=== PATIENT | female | born 1940 | race Asian ===

== ENCOUNTER 2018-09-16 11:50 | Outpatient (CLI) | payer MEDICARE ==
[2018-09-16 19:33] LABS: BASOPHILS % (AUTO) 0.5 %; EOSINOPHILS % (AUTO) 0.2 %; HGB - HEMOGLOBIN 15.1 g/dL (12.0-16.0); LYMPHOCYTES # (AUTO) 1.5 10^3/uL (1.5-3.5); LYMPHOCYTES % (AUTO) 26.8 %; MEAN CORPUSCULAR HEMOGLOBIN 30.7 pg (27.0-31.0); MEAN PLATELET VOLUME 7.1 fL (7.9-10.8); MONOCYTES # (AUTO) 0.3 10^3/uL (0.0-1.0); MONOCYTES % (AUTO) 5.2 %; NEUTROPHILS # (AUTO) 3.7 10^3/uL (1.5-6.6); NEUTROPHILS % (AUTO) 67.3 %; PLT - PLATELET COUNT 230 10^3/uL (130-450); RED BLOOD COUNT 4.92 10^6/uL (4.20-5.40); RED CELL DISTRIBUTION WIDTH 12.9 % (12.0-15.0); WHITE BLOOD COUNT 5.6 x10^3/uL (4.8-10.8)
[2018-09-16 19:46] LABS: ALBUMIN 4.6 g/dL (3.2-5.5); ALBUMIN/GLOBULIN RATIO 1.4 (1.0-2.2); ALKALINE PHOSPHATASE 61 IU/L (42-121); ALT ALANINE AMINOTRANSFERASE 16 IU/L (10-60); AST ASPARTATE AMINOTRANSFERASE 20 IU/L (10-42); BILIRUBIN,TOTAL 1.1 mg/dL (0.2-1.0); BUN - BLOOD UREA NITROGEN 19 mg/dL (6-20); CARBON DIOXIDE - CO2 26 mmol/L (21-32); CHLORIDE 102 mmol/L (101-111); CHOL/HDL RATIO 2.4 (<4.4); CHOLESTEROL 185 mg/dL; CREATININE 0.8 mg/dL (0.4-1.0); GFR - MDRD 70 (>89); GLUCOSE 123 mg/dL (70-100); HDL CHOLESTEROL 76 mg/dL; LDL CHOLESTEROL,CALCULATED 95 mg/dL; LDL/HDL RATIO 1.3 (<4.4); SODIUM 136 mmol/L (135-145); TOTAL PROTEIN 7.9 g/dL (6.7-8.2); VLDL CHOLESTEROL 14 mg/dL
== END 2018-09-16 23:59 ==
LOC: LAB.WCP 11:50
PROVIDERS: ATTEND Nurse Practitioner
DX: I10 Essential (primary) hypertension (principal)
CPT/HCPCS: 36415; 80053; 80061; 83721; 84443; 85025

== ENCOUNTER 2019-05-26 10:16 | Outpatient (CLI) | payer MEDICARE ==
[2019-05-26 10:50] LABS: HB2 TOTAL 14.5 g/dL; HEMOGLOBIN A1C 0.78 g/dL; HEMOGLOBIN A1C % 7.1 % (4.6-6.2)
[2019-05-26 11:10] LABS: CALCIUM 9.5 mg/dL (8.5-10.3); CREATININE 0.8 mg/dL (0.4-1.0)
== END 2019-05-26 10:17 | disposition home or self-care (01) ==
LOC: LAB 10:16
PROVIDERS: ATTEND Nurse Practitioner
DX: R73.01 Impaired fasting glucose (principal); I10 Essential (primary) hypertension
CPT/HCPCS: 36415; 80048; 83036

== ENCOUNTER 2019-10-03 08:53 | Outpatient (CLI) | payer MEDICARE ==
[2019-10-03 09:10] LABS: BASOPHILS % (AUTO) 0.5 %; HGB - HEMOGLOBIN 14.1 g/dL (12.0-16.0); LYMPHOCYTES # (AUTO) 1.1 10^3/uL (1.5-3.5); LYMPHOCYTES % (AUTO) 27.8 %; MEAN CORPUSCULAR HEMOGLOBIN 30.7 pg (27.0-31.0); MEAN CORPUSCULAR HGB CONC 32.2 g/dL (32.0-36.0); MEAN CORPUSCULAR VOLUME 95.4 fL (81.0-99.0); MEAN PLATELET VOLUME 8.8 fL (7.9-10.8); MONOCYTES # (AUTO) 0.3 10^3/uL (0.0-1.0); MONOCYTES % (AUTO) 7.8 %; NEUTROPHILS # (AUTO) 2.5 10^3/uL (1.5-6.6); NEUTROPHILS % (AUTO) 62.6 %; PLT - PLATELET COUNT 169 10^3/uL (130-450); RED BLOOD COUNT 4.59 10^6/uL (4.20-5.40)
[2019-10-03 09:35] LABS: ALBUMIN 4.8 g/dL (3.2-5.5); ALBUMIN/GLOBULIN RATIO 1.5 (1.0-2.2); ALKALINE PHOSPHATASE 61 IU/L (42-121); ALT ALANINE AMINOTRANSFERASE 23 IU/L (10-60); AST ASPARTATE AMINOTRANSFERASE 25 IU/L (10-42); BUN - BLOOD UREA NITROGEN 48 mg/dL (6-20); CALCIUM 9.5 mg/dL (8.5-10.3); CARBON DIOXIDE - CO2 25 mmol/L (21-32); CHLORIDE 104 mmol/L (101-111); CHOL/HDL RATIO 2.7 (<4.4); CHOLESTEROL 187 mg/dL; CREATININE 1.2 mg/dL (0.4-1.0); GFR - MDRD 44 (>89); GLUCOSE 128 mg/dL (70-100); HDL CHOLESTEROL 70 mg/dL; LDL CHOLESTEROL,CALCULATED 99 mg/dL; LDL/HDL RATIO 1.4 (<4.4); SODIUM 140 mmol/L (135-145); TOTAL PROTEIN 7.9 g/dL (6.7-8.2); VLDL CHOLESTEROL 18 mg/dL
[2019-10-03 09:41] LABS: HB2 TOTAL 14.3 g/dL; HEMOGLOBIN A1C 0.73 g/dL; HEMOGLOBIN A1C % 6.8 % (4.6-6.2)
== END 2019-10-03 08:54 | disposition home or self-care (01) ==
LOC: LAB 08:53
PROVIDERS: ATTEND Nurse Practitioner
DX: Z00.00 Encounter for general adult medical examination without abnormal findings (principal); I10 Essential (primary) hypertension; Z13.220 Encounter for screening for lipoid disorders; E11.9 Type 2 diabetes mellitus without complications
CPT/HCPCS: 36415; 80053; 80061; 83036; 83721; 84443; 85025

== ENCOUNTER 2021-07-04 21:33 | Outpatient (CLI) | payer MEDICARE | END 2021-07-04 21:34 | disposition critical access hospital (66) | LOC: EMS 21:33 | DX: R11.0 Nausea (principal); M79.604 Pain in right leg | CPT/HCPCS: A0425; A0427 ==

== ENCOUNTER 2021-07-04 21:46 | Emergency (ER) | payer MEDICARE ==
[2021-07-04 22:25] LABS: BASOPHILS % (AUTO) 0.2 %; EOSINOPHILS % (AUTO) 0.1 %; HCT - HEMATOCRIT 37.1 % (37.0-47.0); HGB - HEMOGLOBIN 11.7 g/dL (12.0-16.0); LYMPHOCYTES # (AUTO) 0.6 10^3/uL (1.5-3.5); LYMPHOCYTES % (AUTO) 6.8 %; MEAN CORPUSCULAR HEMOGLOBIN 30.2 pg (27.0-31.0); MEAN CORPUSCULAR HGB CONC 31.5 g/dL (32.0-36.0); MEAN CORPUSCULAR VOLUME 95.6 fL (81.0-99.0); MEAN PLATELET VOLUME 8.6 fL (7.9-10.8); MONOCYTES # (AUTO) 0.6 10^3/uL (0.0-1.0); MONOCYTES % (AUTO) 7.4 %; NEUTROPHILS # (AUTO) 7.3 10^3/uL (1.5-6.6); NEUTROPHILS % (AUTO) 85.1 %; PLT - PLATELET COUNT 163 10^3/uL (130-450); RED BLOOD COUNT 3.88 10^6/uL (4.20-5.40); RED CELL DISTRIBUTION WIDTH 12.5 % (12.0-15.0); WHITE BLOOD COUNT 8.6 x10^3/uL (4.8-10.8)
--- NOTE | 2021-07-04 22:32 | XRAY Report ---
PROCEDURE: Hip w/Pelvis 2-3V RT INDICATIONS: GLF, pain with weight bearing TECHNIQUE: AP pelvis with lateral view(s) of the bilateral hip(s). COMPARISON: None. FINDINGS: Bones: No fractures or dislocations. Pelvic ring appears intact. No suspicious bony lesions. Mild right and moderate left hip joint space narrowing and periarticular osteophyte formation. Soft tissues: The visualized bowel gas pattern is normal. No suspicious soft tissue calcifications. Curvilinear device projects over the left pelvic soft tissues. IMPRESSION: Bilateral hip osteoarthritis. No acute fracture. No osseous lesion. If symptoms and/or c linical suspicion for pathology continue, further assessment with repeat plain films, or advanced pattie ging (e.g., CT, MRI, or bone scan) is recommended for further assessment. Reviewed by: Martin Lemos MD on 07/04/2021 10:31 PM PDT Approved by: Martin Lemos MD on 07/04/2021 10:31 PM PDT Station ID: [id number]
[2021-07-04 22:38] LABS: ALBUMIN/GLOBULIN RATIO 1.2 (1.0-2.2); BILIRUBIN,TOTAL 0.9 mg/dL (0.2-1.0); CALCIUM 9.2 mg/dL (8.5-10.3); CREATININE 1.1 mg/dL (0.4-1.0); TOTAL PROTEIN 7.3 g/dL (6.7-8.2)
--- NOTE | 2021-07-04 23:55 | CT Report ---
PROCEDURE: HEAD WO INDICATIONS: fall, headache, n/v TECHNIQUE: Noncontrast 4.5 mm thick angled axial sections acquired from the foramen magnum to the vertex. For r adiation dose reduction, the following was used: automated exposure control, adjustment of mA and/or kV according to patient size. COMPARISON: None. FINDINGS: Image quality: Excellent. CSF spaces: Basal cisterns are patent. No extra-axial fluid collections. Ventricles are normal in size and shape. Brain: No midline shift. No intracranial masses or hemorrhage. Etienne-white matter interface is norm al. Skull and face: Right frontotemporal soft tissue swelling. Calvarium and visualized facial bones are intact, without suspicious lesions. Sinuses: Visualized sinuses and mastoids are clear. IMPRESSION: No acute intracranial abnormality. Reviewed by: Martin Lemos MD on 07/04/2021 11:54 PM PDT Approved by: Martin Lemos MD on 07/04/2021 11:54 PM PDT Station ID: [id number]
--- NOTE | 2021-07-05 00:28 | ED Physician Documentation ---
PD HPI Fall - Stated complaint Stated Complaint: NAUSEA/ R LEG PX - Chief complaint Chief Complaint: Trauma Hd/Nk - History obtained from History obtained from: Patient - History of Present Illness Mechanism of injury: Tripped Fall distance: Standing position Where injury occurred: Home Timing - onset: How many days ago (2) Injury(ies) location: Head, Right (hip) Associated symptoms: Nausea / vomiting. No: LOC Symptoms improve with: Nothing Contributing factors: No: Anticoagulated, Intoxicated Recently seen: Not recently seen - Additional information Additional information: patient is limited historian; does not have her hearing aids in ears (and when she tries to insert them, she does not know how they go in nor how to turn them on). Patient had mechanical (trip and) fall 2 days ago at home, struck head on floor but no LOC. Since then, she has had intermittent dizziness, episodic nausea with vomiting, and right hip pain though able to bear some weight. Review of Systems Constitutional: denies: Fever Cardiac: reports: Reviewed and negative Respiratory: reports: Reviewed and negative GI: reports: Nausea, Vomiting. denies: Abdominal Pain Skin: reports: Reviewed and negative Musculoskeletal: reports: Joint pain (right hip). denies: Neck pain, Back pain Neurologic: reports: Head injury. denies: Generalized weakness, Focal weakness, Numbness, Altered mental status, Headache, LOC PD PAST MEDICAL HISTORY - Past Medical History Past Medical History: Yes Cardiovascular: Hypertension Endocrine/Autoimmune: Type 2 diabetes - Present Medications Home Medications: Ambulatory Orders Medication Instructions Recorded Confirmed Sulfamethox/Trimeth 800/160 1 each PO BID #14 tablet 07/05/21 [Bactrim Ds 800/160] - Allergies Allergies/Adverse Reactions: Allergies Allergy/AdvReac Type Severity Reaction Status Date / Time Unable to Assess Allergy Verified 07/04/21 21:54 - Social History Does the pt smoke?: No Smoking Status: Never smoker Does the pt drink ETOH?: No Does the pt have substance abuse?: No - Immunizations Immunizations are current?: Yes PD ED PE NORMAL - Vitals Vital signs reviewed: Yes - General General: No acute distress, Other (thin, frail appearing female in NAD. she is exceptionally POARCH and thus cannot ascertain level of orientation (Had hearing aids in earlier and thus ED RN was able to gather fair amount of useful information that is incoporated into this H+P)) - HEENT HEENT: PERRL, EOMI, Moist mucous membranes, Other (large (2-3 cm diameter) crusted, raised scab and granulation tissue over right forehead which is nontender but from which pus is expressed when pressure is applied to the area) - Neck Neck: Supple, no meningeal sign, No bony TTP - Cardiac Cardiac: RRR - Respiratory Respiratory: No respiratory distress, Clear bilaterally - Abdomen Abdomen: Soft, Non tender - Back Back: No spinal TTP - Extremities Extremities: No deformity, No tenderness to palpate, Normal ROM s pain (normal ROM right ankle, knee, and hip. No tenderness with pelvic compression/distr action), No edema - Neuro Neuro: No motor deficit, No sensory deficit Eye Opening: To Voice Motor: Obeys Commands Results - Vitals Vitals: Vital Signs - 24 hr 07/04/21 07/04/21 07/04/21 21:51 21:54 22:32 Temperature 36.2 C L 36.2 C L Heart Rate 81 81 81 Respiratory 16 16 21 Rate Blood Pressure 178/77 H 178/77 H 166/80 H O2 Saturation 97 97 98 07/05/21 07/05/21 07/05/21 00:00 01:06 03:00 Temperature 36.4 C L Heart Rate 83 81 72 Respiratory 16 15 16 Rate Blood Pressure 134/69 H 127/68 150/62 H O2 Saturation 97 97 99 07/05/21 03:31 Temperature 36.4 C L Heart Rate 72 Respiratory 16 Rate Blood Pressure 150/62 H O2 Saturation 99 Oxygen O2 Source Room air - Labs Labs: Microbiology 07/05/21 02:00 Wound Culture - Preliminary Face - Abscess Laboratory Tests 07/04/21 07/04/21 22:21 22:21 WBC 8.6 RBC 3.88 L Hgb 11.7 L Hct 37.1 MCV 95.6 MCH 30.2 MCHC 31.5 L RDW 12.5 Plt Count 163 MPV 8.6 Neut # (Auto) 7.3 H Lymph # (Auto) 0.6 L [place] # (Auto) 0.6 Eos # (Auto) 0.0 Baso # (Auto) 0.0 Absolute Nucleated RBC 0.00 Nucleated RBC % 0.0 Sodium 141 Potassium 4.0 Chloride 109 Carbon Dioxide 23 Anion Gap 9.0 BUN 33 H Creatinine 1.1 H Estimated GFR (MDRD) 48 L Glucose 201 H Calcium 9.2 Total Bilirubin 0.9 AST 19 ALT 19 Alkaline Phosphatase 68 Total Protein 7.3 Albumin 4.0 Globulin 3.3 Albumin/Globulin Ratio 1.2 Lipase 29 - Rads (name of study) CTH Radiology: Prelim report reviewed, See rad report pelvis with right hip xrays Radiology: Prelim report reviewed, See rad report PD MEDICAL DECISION MAKING - ED course Complexity details: reviewed results, re-evaluated patient, considered differential, d/w patient ED course: no concerning/emergent findings on CT head nor plain films right hip/pelvis . she has full ROM right hip. incidentally noted is what appears to be a scab with granulation tissue on right forehead (ED RN says she d/w who says this has been there for weeks or longer and patient has yet to see a doctor about this lesion). With mild pressure on this lesion, pus was expressed, collected, and sent for culture and she is given/prescribed bactrim for this infected lesion. Departure - Departure Disposition: 01 Home, Self Care Clinical Impression: Scalp abrasion, infected Qualifiers: Encounter type: initial encounter Qualified Code(s): S00.01XA - Abrasion of scalp, initial encounter Condition: Good Instructions: ED Infec Skin Cellulitis Prescriptions: Sulfamethox/Trimeth 800/160 [Bactrim Ds 800/160] 1 each PO BID #14 tablet Comments: The lesion on your forehead is infected (pus discharge) and so an antibiotic was given to you and a prescription for a course of antibiotic has been sent to [facility] Discharge Date/Time: 07/05/21 03:31
[2021-07-05] MEDS ORDERED: SULFAMETH/TRIMETH DS 800/160 MG TABLET PO STA (01:51)
[2021-07-05 03:31] VITALS: BP 150/62
== END 2021-07-05 03:31 | disposition home or self-care (01) ==
LOC: EDUNIT# → ED 21:46
DX: S00.81XA Abrasion of other part of head, initial encounter (principal); L08.9 Local infection of the skin and subcutaneous tissue, unspecified; M25.551 Pain in right hip; R42 Dizziness and giddiness; R11.2 Nausea with vomiting, unspecified
CPT/HCPCS: 36415; 70450; 73502; 80053; 83690; 85025; 87070; 87077; 87205; 93005; 99283; 99284; A9270; 87181

== ENCOUNTER 2021-07-29 17:24 | Outpatient (CLI) | payer MEDICARE | END 2021-07-29 17:25 | disposition home or self-care (01) | LOC: LAB.N 17:24 | PROVIDERS: ATTEND Nurse Practitioner | DX: R35.0 Frequency of micturition (principal) | CPT/HCPCS: 81001; 87086 ==

== ENCOUNTER 2021-07-29 17:27 | Outpatient (CLI) | payer MEDICARE ==
--- NOTE | 2021-07-30 11:18 | XRAY Report ---
PROCEDURE: Thoracic Spine 3 View INDICATIONS: ACUTE BACK PAIN TECHNIQUE: 3 views of the thoracic spine were acquired. COMPARISON: None. FINDINGS: Bones: No fractures or dislocations. Vertebral body heights are maintained. No suspicious bony lesi ons. 12 pairs of ribs are noted, and appear intact where visualized. Focal levoscoliotic curvature noted at T4-T5 with a Valdovinos angle approximately 16.8 degrees. Multilevel endplate degenerative changes . Soft tissues: No paravertebral stripe thickening. Atherosclerotic calcifications noted throughout t he aorta. IMPRESSION: Mild multilevel thoracic spondylosis without evidence of an acute abnormality. Levoscoliotic curvature centered at T4-T5. Reviewed by: Kevin Amin DO on 07/30/2021 10:17 AM KATERYNA Approved by: Kevin Amin DO on 07/30/2021 10:17 AM KATERYNA Station ID: [id number]
--- NOTE | 2021-07-30 11:23 | XRAY Report ---
PROCEDURE: Lumbar Spine Complete INDICATIONS: ACUTE LOW BACK PAIN TECHNIQUE: 5 views of the lumbar spine were acquired. COMPARISON: None. FINDINGS: The exam is slightly limited given technique and diffuse bowel gas overlying the spine. Bones: 5 [id number] vertebrae are present. Vertebral body heights are maintained. There is grad e 1 anterolisthesis of L4 on L5. There is at least mild intervertebral disc space loss at L4-L5 and L 5-S1. There is facet arthropathy. Mild endplate degenerative changes. No pars defects. No suspicious osseous lesions. Soft tissues: Overlying bowel gas pattern is normal. Diffuse vascular calcifications with questionab le dilation of the abdominal aorta anterior to L3 and L4. Surgical object noted in the pelvis. IMPRESSION: No acute osseous abnormality. Multilevel lumbar spondylosis with grade 1 anterolisthesis of L4 on L5 with at least mild disc height loss at L4-L5 and L5-S1. Diffuse vascular calcifications with questionable dilation of the infrarenal abdominal aorta. Conside r further evaluation with ultrasound. Reviewed by: Kevin Amin DO on 07/30/2021 10:22 AM KATERYNA Approved by: Kevin Amin DO on 07/30/2021 10:22 AM KATERYNA Station ID: [id number]
== END 2021-07-29 17:28 | disposition home or self-care (01) ==
LOC: DI.N 17:27
PROVIDERS: ATTEND Nurse Practitioner
DX: M47.814 Spondylosis without myelopathy or radiculopathy, thoracic region (principal); M47.816 Spondylosis without myelopathy or radiculopathy, lumbar region; M43.16 Spondylolisthesis, lumbar region; M51.36 Other intervertebral disc degeneration, lumbar region; M51.37 Other intervertebral disc degeneration, lumbosacral region

== ENCOUNTER 2021-07-29 19:35 | Outpatient (CLI) | payer MEDICARE | END 2021-07-29 19:36 | disposition critical access hospital (66) | LOC: EMS 19:35 | DX: Z04.89 Encounter for examination and observation for other specified reasons (principal) | CPT/HCPCS: A0425; A0429 ==

== ENCOUNTER 2021-07-29 20:42 | Emergency (ER) | payer MEDICARE ==
[2021-07-29 21:01] LABS: BILIRUBIN,URINE NEGATIVE (NEGATIVE); CLARITY,URINE CLEAR (CLEAR); GLUCOSE, URINE (UA) 100 mg/dL (NEGATIVE); KETONES,URINE (UA) NEGATIVE (NEGATIVE); LEUKOCYTE ESTERASE, URINE NEGATIVE (NEGATIVE); NITRITE,URINE NEGATIVE (NEGATIVE); OCCULT BLOOD,URINE TRACE-LYSE (NEGATIVE); PH,URINE 5.5 PH (5.0-7.5); PROTEIN,URINE TRACE mg/dL (NEGATIVE); UROBILINOGEN,URINE 0.2 (NORMAL) E.U./dL (NORMAL)
--- NOTE | 2021-07-29 21:16 | ED Physician Documentation ---
History of Present Illness - Stated complaint Stated Complaint: HIGH BLOOD PRESSURE - Chief complaint Chief Complaint: General - History obtained from History obtained from: Patient, EMS - Additonal information Additional information: 81yF with pmh htn, dm, not on meds, presents bibems after her daughter in [place] told her to call 911 due to high blood pressure at her doctor's office today (200/100) and because of what daughter perceived as slurring of speech for the past couple weeks. Patient had a fall 2 weeks ago with negative workup in the emergency department. also just recently finished 7 day course of bactrim for R forehead chronic cancerous wound that appeared purulent at that time per documentation. Patient has been c/o increased urinary frequency X 1 week and mild L hamstring/femur pain X 2 weeks but denies other complaints, stating she feels normal and wants to go home. Review of Systems Ten Systems: 10 systems reviewed and negative Constitutional: denies: Fever, Chills Cardiac: denies: Chest pain / pressure Respiratory: denies: Dyspnea : reports: Frequency. denies: Dysuria, Hematuria Musculoskeletal: denies: Back pain Neurologic: denies: Focal weakness, Numbness, Difficulty speaking, Confused, Headache PD PAST MEDICAL HISTORY - Past Medical History Cardiovascular: Hypertension Endocrine/Autoimmune: Type 2 diabetes - Present Medications Home Medications: Ambulatory Orders Medication Instructions Recorded Confirmed Sulfamethox/Trimeth 800/160 1 each PO BID #14 tablet 07/05/21 [Bactrim Ds 800/160] - Allergies Allergies/Adverse Reactions: Allergies Allergy/AdvReac Type Severity Reaction Status Date / Time No Known Drug Allergies Allergy Verified 07/29/21 20:43 - Social History Does the pt smoke?: No Smoking Status: Never smoker Does the pt drink ETOH?: No Does the pt have substance abuse?: No - Immunizations Immunizations are current?: Yes PD ED PE NORMAL - Vitals Vital signs reviewed: Yes - General General: No acute distress, Well developed/nourished, Other (alert and mentating at baseline) - HEENT HEENT: Atraumatic, PERRL, EOMI, Moist mucous membranes, Pharynx benign, Other (R anterior scalp with cancerous mass, nonerythematous without purulence) - Neck Neck: Supple, no meningeal sign, No bony TTP - Cardiac Cardiac: RRR - Respiratory Respiratory: No respiratory distress, Clear bilaterally - Abdomen Abdomen: Non tender, Non distended - Back Back: No spinal TTP - Derm Derm: Normal color, Warm and dry - Extremities Extremities: Normal ROM s pain, Other (L hip discomfort with rom. L femur discomfort to palpation at posterior aspect. 2+ BL DP pulses. normal sensation, cap refill, strength) - Neuro Neuro: laboratory monitor 2-12 intact, No motor deficit, No sensory deficit, Normal speech, Other (normal speech, strength, and cerebellar testing) - Psych Psych: Normal mood, Normal affect Results - Vitals Vitals: Vital Signs - 24 hr 07/29/21 07/29/21 07/29/21 20:43 20:51 21:14 Temperature 36.9 C 36.8 C Heart Rate 90 90 86 Respiratory 16 16 16 Rate Blood Pressure 175/88 H 175/88 H 153/88 H O2 Saturation 100 100 100 07/29/21 23:00 Temperature Heart Rate 84 Respiratory 16 Rate Blood Pressure 149/81 H O2 Saturation 100 Oxygen O2 Source Room air - EKG (time done) 2141 Rate: Rate (enter#) (81) Rhythm: NSR Intervals: RBBB, Other ([id number]) Ischemia: Normal ST segments - Labs Labs: Laboratory Tests 07/29/21 07/29/21 07/29/21 20:00 21:28 21:28 WBC 7.3 RBC 4.08 L Hgb 11.9 L Hct 38.5 MCV 94.4 MCH 29.2 MCHC 30.9 L RDW 12.2 Plt Count 220 MPV 8.3 Neut # (Auto) 5.8 Lymph # (Auto) 1.0 L [place] # (Auto) 0.4 Eos # (Auto) 0.0 Baso # (Auto) 0.0 Absolute Nucleated RBC 0.00 Nucleated RBC % 0.0 Sodium 144 Potassium 3.7 Chloride 109 Carbon Dioxide 24 Anion Gap 11.0 BUN 29 H Creatinine 1.0 Estimated GFR (MDRD) 53 L Glucose 154 H Calcium 9.0 Total Bilirubin 0.8 AST 18 ALT 16 Alkaline Phosphatase 266 H Total Protein 7.1 Albumin 3.8 Globulin 3.3 Albumin/Globulin Ratio 1.2 Lipase 56 H Urine Color YELLOW Urine Clarity CLEAR Urine pH 5.5 Ur Specific [place] >=1.030 H Urine Protein TRACE Urine Glucose (UA) 100 H Urine Ketones NEGATIVE Urine Occult Blood TRACE-LYSE Urine Nitrite NEGATIVE Urine Bilirubin NEGATIVE Urine Urobilinogen 0.2 (NORMAL) Ur Leukocyte Esterase NEGATIVE Ur Microscopic Review NOT INDICATED Urine Culture Comments NOT INDICATED PD MEDICAL DECISION MAKING - ED course ED course: d/w daughter Carla who is an ED nurse in [place] and who sent the patient in for eval. she is concerned Because patient had a appointment with her primary care doctor today and blood pressure was 200/100. She also is concerned because her speech has been slurred for the past couple weeks and the patient has not been compliant with her medications for her about 3 years. She is concerned that the patient needs additional help at home and is working on coordinating a caregiver to come in [place]. d/w Dr. Carbajal regarding R obturator ring nondisplaced fracture. Patient is not having pain on the right side at this time and has been ambulatory for [address] Carbajal states this is good prognostic sign, patient may f/u in clinic and it will likely heal within 6 weeks. d/w daughter Carla. return precautions discussed. plan to f/u with pmd this week. Departure - Departure Disposition: 01 Home, Self Care Clinical Impression: Hypertension, Hip pain, Pelvic fracture Condition: Good Instructions: Hypertension Control Follow-Up: Ren Carbajal MD [Provider Admit Priv/Credential] - Comments: You were seen in the emergency department for hip pain and high blood pressure. Your labwork didn't show any emergent findings and your blood pressure came down in the emergency department to 153/76. Your physical exam showed no signs of stroke. Your xray of the chest was normal. Your xray of the hip and pelvis showed a possible very small break in the pelvis (right obturator ring fracture). You should take tylenol for pain and can continue walking. This is a stable break and does not need surgery according to our orthopedics doctor. You should follow up with your doctor this week and follow up with orthopedics as needed if you continue to have issues with your hips or pelvis. return to the emergency department if you have any new or worsening symptoms or other concerns.
[2021-07-29 21:36] LABS: BASOPHILS % (AUTO) 0.4 %; EOSINOPHILS % (AUTO) 0.3 %; HCT - HEMATOCRIT 38.5 % (37.0-47.0); HGB - HEMOGLOBIN 11.9 g/dL (12.0-16.0); LYMPHOCYTES % (AUTO) 13.3 %; MEAN CORPUSCULAR HEMOGLOBIN 29.2 pg (27.0-31.0); MEAN CORPUSCULAR HGB CONC 30.9 g/dL (32.0-36.0); MEAN CORPUSCULAR VOLUME 94.4 fL (81.0-99.0); MEAN PLATELET VOLUME 8.3 fL (7.9-10.8); MONOCYTES # (AUTO) 0.4 10^3/uL (0.0-1.0); MONOCYTES % (AUTO) 6.1 %; NEUTROPHILS # (AUTO) 5.8 10^3/uL (1.5-6.6); NEUTROPHILS % (AUTO) 79.6 %; PLT - PLATELET COUNT 220 10^3/uL (130-450); RED BLOOD COUNT 4.08 10^6/uL (4.20-5.40); RED CELL DISTRIBUTION WIDTH 12.2 % (12.0-15.0); WHITE BLOOD COUNT 7.3 x10^3/uL (4.8-10.8)
[2021-07-29 22:08] LABS: ALBUMIN 3.8 g/dL (3.2-5.5); ALBUMIN/GLOBULIN RATIO 1.2 (1.0-2.2); BILIRUBIN,TOTAL 0.8 mg/dL (0.2-1.0); POTASSIUM 3.7 mmol/L (3.5-5.0); TOTAL PROTEIN 7.1 g/dL (6.7-8.2)
--- NOTE | 2021-07-29 22:56 | XRAY Report ---
PROCEDURE: Femur 2V LT INDICATIONS: leg pain s/p fall 2 weeks ago TECHNIQUE: 2 views of the femur were acquired. COMPARISON: None. FINDINGS: Bones: No fractures or dislocations. No suspicious bony lesions. Mild to moderate left hip osteoart hritis. Mild left knee osteoarthritis. Soft tissues: No suspicious soft tissue calcifications or masses. Atherosclerotic calcification note d in the left lower extremity IMPRESSION: No fracture. No acute osseous lesion. If there persistent symptoms or continued clinical concern for pathology, then repeat plain film radiographs (7-10 days) or advanced imaging (CT, MR, bone scan) benjamin uld be considered for further evaluation. Reviewed by: Nya Blanchard MD, PhD on 07/29/2021 10:55 PM PDT Approved by: Nya Blanchard MD, PhD on 07/29/2021 10:55 PM PDT Station ID: [id number]
--- NOTE | 2021-07-29 22:57 | XRAY Report ---
PROCEDURE: Hip w/Pelvis 2-3V LT INDICATIONS: hip/femur pain s/p fall 2 weeks ago TECHNIQUE: AP pelvis with lateral view(s) of the bilateral hip(s). COMPARISON: None. FINDINGS: Bones: Mildly displaced fractures involving the right superior and inferior pubic rami. Pelvic ring a ppears intact. No suspicious bony lesions. Soft tissues: The visualized bowel gas pattern is normal. No suspicious soft tissue calcifications. IMPRESSION: Right obturator ring fracture. Reviewed by: Nya Blanchard MD, PhD on 07/29/2021 10:56 PM PDT Approved by: Nya Blanchard MD, PhD on 07/29/2021 10:56 PM PDT Station ID: [id number]
--- NOTE | 2021-07-29 22:58 | XRAY Report ---
PROCEDURE: Chest 1 View X-Ray INDICATIONS: Chest Pain TECHNIQUE: One view of the chest was acquired. COMPARISON: None FINDINGS: Surgical changes and devices: None. Lungs and pleura: No pleural effusions or pneumothorax. Lungs are clear. Lungs hyperinflated consis tent COPD Mediastinum: Mediastinal contours appear normal. Heart size is normal. Bones and chest wall: No suspicious bony lesions. Overlying soft tissues appear unremarkable. IMPRESSION: No acute cardiopulmonary disease process. Reviewed by: Nya Blanchard MD, PhD on 07/29/2021 10:57 PM PDT Approved by: Nya Blanchard MD, PhD on 07/29/2021 10:57 PM PDT Station ID: [id number]
[2021-07-29] MEDS ORDERED: ACETAMINOPHEN 325 MG TABLET PO STA (23:01)
[2021-07-30 00:39] VITALS: BP 140/80
[2021-07-30 00:50] LABS: CHOL/HDL RATIO 2.7 (<4.4); CHOLESTEROL 170 mg/dL; HDL CHOLESTEROL 63 mg/dL; LDL CHOLESTEROL,CALCULATED 94 mg/dL; LDL/HDL RATIO 1.5 (<4.4); TRIGLYCERIDES 67 mg/dL; VLDL CHOLESTEROL 13 mg/dL
[2021-07-30 00:52] LABS: CREATININE,URINE 125.4 mg/dL; MICROALBUM/CREATININE RATIO,UR 165.9 ug/mg (<30.0); MICROALBUMIN,URINE 20.8 mg/dL (0-300.0)
[2021-07-30 01:00] LABS: T4 (THYROXINE) 9.42 ug/dL (6.09-12.23)
[2021-07-30 01:03] LABS: THYROID STIMULATING HORMONE 1.11 uIU/mL (0.34-5.60)
[2021-07-30 01:06] LABS: FREE T4 (FREE THYROXINE) 1.21 ng/dL (0.58-1.64)
[2021-07-30 11:21] LABS: ESTIMATED AVERAGE GLUCOSE 157 mg/dL (70-100); HEMOGLOBIN A1c% 7.1 % (4.27-6.07)
== END 2021-07-30 00:38 | disposition home or self-care (01) ==
LOC: EDBD → ED 20:42
DX: I10 Essential (primary) hypertension (principal); S32.810A Multiple fractures of pelvis with stable disruption of pelvic ring, initial encounter for closed fracture; W18.30XA Fall on same level, unspecified, initial encounter; M16.12 Unilateral primary osteoarthritis, left hip; I45.10 Unspecified right bundle-branch block; E11.9 Type 2 diabetes mellitus without complications; R35.0 Frequency of micturition; C44.309 Unspecified malignant neoplasm of skin of other parts of face; Z91.14 Patient's other noncompliance with medication regimen; M47.814 Spondylosis without myelopathy or radiculopathy, thoracic region; M47.816 Spondylosis without myelopathy or radiculopathy, lumbar region; M43.16 Spondylolisthesis, lumbar region; M51.36 Other intervertebral disc degeneration, lumbar region; M51.37 Other intervertebral disc degeneration, lumbosacral region
CPT/HCPCS: 36415; 71045; 72072; 72110; 73502; 73552; 80053; 80061; 81003; 82043; 82570; 82607; 83036; 83690; 84436; 84439; 84443; 84480; 85025; 93005; 99284; A9270; 81001; 83721; 87086

== ENCOUNTER 2021-07-30 10:02 | Outpatient (CLI) | payer MEDICARE ==
[2021-07-30 14:17] LABS: BASOPHILS % (AUTO) 0.5 %; EOSINOPHILS # (AUTO) 0.1 10^3/uL (0.0-0.7); EOSINOPHILS % (AUTO) 0.9 %; HCT - HEMATOCRIT 42.5 % (37.0-47.0); HGB - HEMOGLOBIN 13.1 g/dL (12.0-16.0); LYMPHOCYTES # (AUTO) 1.3 10^3/uL (1.5-3.5); LYMPHOCYTES % (AUTO) 21.7 %; MEAN CORPUSCULAR HEMOGLOBIN 29.8 pg (27.0-31.0); MEAN CORPUSCULAR HGB CONC 30.8 g/dL (32.0-36.0); MEAN CORPUSCULAR VOLUME 96.6 fL (81.0-99.0); MEAN PLATELET VOLUME 9.5 fL (7.9-10.8); MONOCYTES # (AUTO) 0.3 10^3/uL (0.0-1.0); MONOCYTES % (AUTO) 5.1 %; NEUTROPHILS # (AUTO) 4.2 10^3/uL (1.5-6.6); NEUTROPHILS % (AUTO) 71.5 %; PLT - PLATELET COUNT 268 10^3/uL (130-450); RED CELL DISTRIBUTION WIDTH 12.3 % (12.0-15.0); WHITE BLOOD COUNT 5.9 x10^3/uL (4.8-10.8)
[2021-07-30 14:35] LABS: ALBUMIN 4.2 g/dL (3.2-5.5); ALBUMIN/GLOBULIN RATIO 1.2 (1.0-2.2); ALKALINE PHOSPHATASE 290 IU/L (42-121); ALT ALANINE AMINOTRANSFERASE 17 IU/L (10-60); AST ASPARTATE AMINOTRANSFERASE 19 IU/L (10-42); BUN - BLOOD UREA NITROGEN 27 mg/dL (6-20); CALCIUM 9.4 mg/dL (8.5-10.3); CARBON DIOXIDE - CO2 26 mmol/L (21-32); CHLORIDE 105 mmol/L (101-111); CHOL/HDL RATIO 2.5 (<4.4); CHOLESTEROL 192 mg/dL; GFR - MDRD 53 (>89); GLUCOSE 132 mg/dL (70-100); HDL CHOLESTEROL 76 mg/dL; LDL CHOLESTEROL,CALCULATED 95 mg/dL; LDL/HDL RATIO 1.3 (<4.4); POTASSIUM 3.7 mmol/L (3.5-5.0); SODIUM 142 mmol/L (135-145); TOTAL PROTEIN 7.7 g/dL (6.7-8.2); TRIGLYCERIDES 106 mg/dL; VLDL CHOLESTEROL 21 mg/dL
[2021-07-30 14:46] LABS: THYROID STIMULATING HORMONE 1.39 uIU/mL (0.34-5.60)
[2021-07-30 21:05] LABS: ESTIMATED AVERAGE GLUCOSE 157 mg/dL (70-100); HEMOGLOBIN A1c% 7.1 % (4.27-6.07)
== END 2021-07-30 10:03 | disposition home or self-care (01) ==
LOC: LAB.N 10:02
PROVIDERS: ATTEND Nurse Practitioner
DX: E11.9 Type 2 diabetes mellitus without complications (principal)
CPT/HCPCS: 36415; 80053; 80061; 82043; 82570; 82607; 83036; 83721; 84443; 85025

== ENCOUNTER 2021-08-02 13:20 | Outpatient (CLI) | payer MEDICARE ==
--- NOTE | 2021-08-02 15:24 | MRI Report ---
PROCEDURE: Brain W/O INDICATIONS: MEMORY LOSS TECHNIQUE: Noncontrast axial T1 spin echo, axial T2 fast spin echo, sagittal and axial FLAIR, coronal T2 fast sp in echo, axial gradient echo, axial diffusion and ADC through the brain. COMPARISON: Correlation is made with prior head CT, 07/04/2021. FINDINGS: Image quality: Excellent. CSF Spaces: Basal cisterns are patent. No extra-axial fluid collections. Ventricles are normal in size and shape. Brain: No intracranial hemorrhage. Etienne/white matter interface is normal. Brainstem appears normal . Diffusion-weighted images demonstrate no acute ischemic insult. No chronic ischemic insults. Nor mal intravascular flow voids are present. Prominent perivascular spaces are incidentally noted. Age -appropriate brain parenchymal volume loss and chronic small vessel ischemic change can be seen. Along the pituitary stalk anteriorly, there is an oblong ovoid focus that measures 8 mm craniocaudall y, with a maximum axial extent of 6 x 7 mm. This is hyperintense on FLAIR imaging and relatively low signal on T2-weighted imaging with increased signal on T1-weighted imaging. This can be seen on serie s 301 image 13 and on series 4 and 1 image 11 and on series 601 image 11. Skull and face: A skin lesion is incidentally noted involving the right temporal region. Calvarium hanson s normal marrow signal. Orbits appear normal. Sinuses: Sinuses and mastoids are clear. IMPRESSION: No imaging explanation is found for the patient's presenting symptoms. There is an 8 mm lesion seen along the anterior aspect of the pituitary stalk. The imaging appearance is nonspecific, although this may be related to a highly proteinaceous cyst. If clinically appropria te, please consider a follow-up pituitary protocol MRI (without and with contrast) for further eval uation. A skin lesion is incidentally noted involving the right temporal region. Please correlate with physic al examination findings and known patient history. No findings of acute or subacute infarction are seen. Age-appropriate brain parenchymal volume loss and chronic small vessel ischemic change can be seen. Reviewed by: Wesley Ramirez MD on 08/02/2021 2:23 PM KATERYNA Approved by: Wesley Ramirez MD on 08/02/2021 2:23 PM KATERYNA Station ID: [id number]
== END 2021-08-02 13:21 | disposition home or self-care (01) ==
LOC: DI 13:20
PROVIDERS: ATTEND Nurse Practitioner
DX: R41.3 Other amnesia (principal)

== ENCOUNTER 2021-08-05 08:00 | Outpatient (CLI) | payer MEDICARE ==
[2021-08-05 18:29] LABS: CREATININE,URINE 78.8 mg/dL; MICROALBUM/CREATININE RATIO,UR 36.8 ug/mg (<30.0); MICROALBUMIN,URINE 2.9 mg/dL (0-300.0)
== END 2021-08-05 23:59 | disposition home or self-care (01) ==
LOC: LAB.N 08:00
PROVIDERS: ATTEND Nurse Practitioner
DX: E11.9 Type 2 diabetes mellitus without complications (principal)
CPT/HCPCS: 82043; 82570

== ENCOUNTER 2021-11-30 18:12 | Outpatient (CLI) | payer MEDICARE | END 2021-11-30 18:13 | disposition critical access hospital (66) | LOC: EMS 18:12 | DX: R41.82 Altered mental status, unspecified (principal) | CPT/HCPCS: A0425; A0429 ==

== ENCOUNTER 2021-11-30 18:23 | Observation (INO) | payer MEDICARE ==
--- NOTE | 2021-11-30 18:32 | ED Physician Documentation ---
History of Present Illness - Stated complaint Stated Complaint: WEAKNESS - History obtained from History obtained from: EMS - History of Present Illness Pain level max: 0 Pain level now: 0 - Additonal information Additional information: Around 45 minutes ago the patient's went to check on the patient after dinner and found her on the bed unresponsive. He called 911. EMS arrived, states blood sugar was 183. They state there were no signs of trauma. Does have a history of skin cancer, unknown what type. They state that the denies any falls. They state that the patient is full code. She is not on blood thinners at the family is aware of. Review of Systems Unable to obtain: Unresponsive PD PAST MEDICAL HISTORY - Past Medical History Cardiovascular: Hypertension Endocrine/Autoimmune: Type 2 diabetes - Present Medications Home Medications: Ambulatory Orders Medication Instructions Recorded Confirmed Sulfamethox/Trimeth 800/160 1 each PO BID #14 tablet 07/05/21 [Bactrim Ds 800/160] - Allergies Allergies/Adverse Reactions: Allergies Allergy/AdvReac Type Severity Reaction Status Date / Time No Known Drug Allergies Allergy Verified 11/30/21 19:02 - Social History Does the pt smoke?: No Smoking Status: Never smoker Does the pt drink ETOH?: No Does the pt have substance abuse?: No - Immunizations Immunizations are current?: Yes PD ED PE NORMAL - Vitals Vital signs reviewed: Yes - General General: Other (Minimally responsive. Eyes closed. Nasal trumpet in the right nare) - HEENT HEENT: Moist mucous membranes, Other (Pupils equal, nonreactive) - Neck Neck: Other (No step-off or deformity) - Cardiac Cardiac: RRR, Strong equal pulses - Respiratory Respiratory: No respiratory distress, Clear bilaterally - Abdomen Abdomen: Soft, Non tender, Non distended - Back Back: Other (No step-off or deformity) - Derm Derm: Warm and dry - Extremities Extremities: No deformity - Neuro Eye Opening: None Motor: Withdraws to Pain Verbal: Incomprehensible GCS Score: 7 Results - Vitals Vitals: Vital Signs - 24 hr 11/30/21 11/30/21 11/30/21 18:45 19:00 19:30 Temperature 36.2 C L Heart Rate 81 87 92 Respiratory 20 19 19 Rate Blood Pressure 190/99 H 204/92 H 162/84 H O2 Saturation 95 97 97 11/30/21 11/30/2122 19:40 19:50 19:55 Temperature Heart Rate 100 101 H 100 Respiratory 20 22 20 Rate Blood Pressure 131/95 H 147/61 H 128/56 L O2 Saturation 98 95 93 11/30/21 11/30/21 20:05 20:16 Temperature Heart Rate 102 H 104 H Respiratory 22 20 Rate Blood Pressure 135/116 H 141/130 H O2 Saturation 97 95 Oxygen O2 Source Room air - Labs Labs: Laboratory Tests 11/30/21 11/30/21 11/30/21 18:33 18:33 18:33 WBC 8.6 RBC 4.00 L Hgb 12.0 Hct 37.0 MCV 92.5 MCH 30.0 MCHC 32.4 RDW 12.2 Plt Count 202 MPV 8.8 Neut # (Auto) 6.6 Lymph # (Auto) 1.3 L Toole # (Auto) 0.6 Eos # (Auto) 0.1 Baso # (Auto) 0.0 Absolute Nucleated RBC 0.00 Nucleated RBC % 0.0 PT INR APTT Sodium 136 Potassium 3.8 Chloride 102 Carbon Dioxide 24 Anion Gap 10.0 BUN 27 H Creatinine 0.8 Estimated GFR (MDRD) 69 L Glucose 206 H Calcium 8.7 Total Bilirubin 0.6 AST 20 ALT 18 Alkaline Phosphatase 103 Total Protein 6.9 Albumin 3.9 Globulin 3.0 Albumin/Globulin Ratio 1.3 Lipase 40 TSH 2.66 Urine Color Urine Clarity Urine pH Ur Specific [place] Urine Protein Urine Glucose (UA) Urine Ketones Urine Occult Blood Urine Nitrite Urine Bilirubin Urine Urobilinogen Ur Leukocyte Esterase Ur Microscopic Review Urine Culture Comments Nasal Adenovirus (PCR) Nasal B. parapertussis DNA (PCR) Nasal Coronavir 229E PCR Nasal Coronavir HKU1 PCR Nasal Coronavir NL63 PCR Nasal Coronavir OC43 PCR Nasal Enterovir/Rhinovir PCR Nasal Influenza B PCR Nasal Influenza A PCR Nasal Parainfluen 1 PCR Nasal Parainfluen 2 PCR Nasal Parainfluen 3 PCR Nasal Parainfluen 4 PCR Nasal RSV (PCR) Nasal B.pertussis DNA PCR Nasal C.pneumoniae (PCR) Fer Human Metapneumo PCR Nasal M.pneumoniae (PCR) Nasal SARS-CoV-2 (PCR) Salicylates < 6.0 Urine Opiates Screen Ur Oxycodone Screen Urine Methadone Screen Ur Propoxyphene Screen Acetaminophen < 10 L Ur Barbiturates Screen Ur Tricyclics Screen Ur Phencyclidine Scrn Ur Amphetamine Screen U Methamphetamines Scrn U Benzodiazepines Scrn Urine Cocaine Screen U Cannabinoids Screen Ethyl Alcohol < 5.0 11/30/21 11/30/21 11/30/21 18:33 19:15 19:44 WBC RBC Hgb Hct MCV MCH MCHC RDW Plt Count MPV Neut # (Auto) Lymph # (Auto) Toole # (Auto) Eos # (Auto) Baso # (Auto) Absolute Nucleated RBC Nucleated RBC % PT 11.6 INR 1.0 APTT 27.5 Sodium Potassium Chloride Carbon Dioxide Anion Gap BUN Creatinine Estimated GFR (MDRD) Glucose Calcium Total Bilirubin AST ALT Alkaline Phosphatase Total Protein Albumin Globulin Albumin/Globulin Ratio Lipase TSH Urine Color YELLOW Urine Clarity CLEAR Urine pH 7.5 Ur Specific [place] 1.020 Urine Protein TRACE Urine Glucose (UA) 250 H Urine Ketones NEGATIVE Urine Occult Blood TRACE-INTA Urine Nitrite NEGATIVE Urine Bilirubin NEGATIVE Urine Urobilinogen 0.2 (NORMAL) Ur Leukocyte Esterase NEGATIVE Ur Microscopic Review NOT INDICATED Urine Culture Comments NOT INDICATED Nasal Adenovirus (PCR) NOT DETECTED Nasal B. parapertussis DNA (PCR) NOT DETECTED Nasal Coronavir 229E PCR NOT DETECTED Nasal Coronavir HKU1 PCR NOT DETECTED Nasal Coronavir NL63 PCR NOT DETECTED Nasal Coronavir OC43 PCR NOT DETECTED Nasal Enterovir/Rhinovir PCR NOT DETECTED Nasal Influenza B PCR NOT DETECTED Nasal Influenza A PCR NOT DETECTED Nasal Parainfluen 1 PCR NOT DETECTED Nasal Parainfluen 2 PCR NOT DETECTED Nasal Parainfluen 3 PCR NOT DETECTED Nasal Parainfluen 4 PCR NOT DETECTED Nasal RSV (PCR) NOT DETECTED Nasal B.pertussis DNA PCR NOT DETECTED Nasal C.pneumoniae (PCR) NOT DETECTED Fer Human Metapneumo PCR NOT DETECTED Nasal M.pneumoniae (PCR) NOT DETECTED Nasal SARS-CoV-2 (PCR) NOT DETECTED Salicylates Urine Opiates Screen NEGATIVE Ur Oxycodone Screen NEGATIVE Urine Methadone Screen NEGATIVE Ur Propoxyphene Screen NEGATIVE Acetaminophen Ur Barbiturates Screen NEGATIVE Ur Tricyclics Screen NEGATIVE Ur Phencyclidine Scrn NEGATIVE Ur Amphetamine Screen NEGATIVE U Methamphetamines Scrn NEGATIVE U Benzodiazepines Scrn NEGATIVE Urine Cocaine Screen NEGATIVE U Cannabinoids Screen NEGATIVE Ethyl Alcohol - Rads (name of study) Head CT Radiology: Final report received, EMP read contemporaneously, See rad report Cervical spine CT Radiology: Final report received, EMP read contemporaneously, See rad report PD MEDICAL DECISION MAKING - ED course Complexity details: reviewed results, re-evaluated patient, considered differential, d/w family, d/w senior compensation consultant ED course: Patient with a large intraparenchymal bleed. Basal ganglia, likely secondary to hypertension. She was initially started on nicardipine drip. Neurosurgery was consulted, [facility] [place], Dr. Lima. He states that the mortality of this hemorrhage is likely over 90%. The patient's has a GCS of 5 currently. Discussed the case with her . He does not want CPR and surgery. He wants her to be kept close to home and made comfortable. We will admit the patient here for comfort care. Discussed the case with Dr. Crockett, hospitalist who accepts. Patient did develop decerebrate posturing while in the emergency department. She also started to develop hypoxia. Her will come and be with her tonight. Patient is comfort care. Departure - Departure Disposition: ED Place in Observation Clinical Impression: Intraparenchymal hemorrhage of brain, Decerebrate posture Condition: Serious Discharge Date/Time: 11/30/21 21:30
[2021-11-30 18:42] LABS: BASOPHILS % (AUTO) 0.2 %; EOSINOPHILS # (AUTO) 0.1 10^3/uL (0.0-0.7); EOSINOPHILS % (AUTO) 0.8 %; LYMPHOCYTES # (AUTO) 1.3 10^3/uL (1.5-3.5); LYMPHOCYTES % (AUTO) 14.8 %; MEAN CORPUSCULAR HGB CONC 32.4 g/dL (32.0-36.0); MEAN CORPUSCULAR VOLUME 92.5 fL (81.0-99.0); MEAN PLATELET VOLUME 8.8 fL (7.9-10.8); MONOCYTES # (AUTO) 0.6 10^3/uL (0.0-1.0); MONOCYTES % (AUTO) 6.5 %; NEUTROPHILS # (AUTO) 6.6 10^3/uL (1.5-6.6); NEUTROPHILS % (AUTO) 77.1 %; PLT - PLATELET COUNT 202 10^3/uL (130-450); RED CELL DISTRIBUTION WIDTH 12.2 % (12.0-15.0); WHITE BLOOD COUNT 8.6 x10^3/uL (4.8-10.8)
[2021-11-30 18:57] LABS: ACETAMINOPHEN < 10 ug/mL (10-30); ALBUMIN 3.9 g/dL (3.2-5.5); ALBUMIN/GLOBULIN RATIO 1.3 (1.0-2.2); ALKALINE PHOSPHATASE 103 IU/L (42-121); ALT ALANINE AMINOTRANSFERASE 18 IU/L (10-60); AST ASPARTATE AMINOTRANSFERASE 20 IU/L (10-42); BILIRUBIN,TOTAL 0.6 mg/dL (0.2-1.0); BUN - BLOOD UREA NITROGEN 27 mg/dL (6-20); CALCIUM 8.7 mg/dL (8.5-10.3); CARBON DIOXIDE - CO2 24 mmol/L (21-32); CHLORIDE 102 mmol/L (101-111); CREATININE 0.8 mg/dL (0.4-1.0); ETOH - ETHANOL < 5.0 mg/dL; GFR - MDRD 69 (>89); GLUCOSE 206 mg/dL (70-100); LIPASE 40 U/L (22-51); POTASSIUM 3.8 mmol/L (3.5-5.0); PT - PROTHROMBIN TIME 11.6 secs (9.9-12.6); SALICYLATE < 6.0 mg/dL; SODIUM 136 mmol/L (135-145); TOTAL PROTEIN 6.9 g/dL (6.7-8.2)
--- NOTE | 2021-11-30 18:58 | CT Report ---
PROCEDURE: HEAD WO INDICATIONS: altered mental status TECHNIQUE: Noncontrast 4.5 mm thick angled axial sections acquired from the foramen magnum to the vertex. For r adiation dose reduction, the following was used: automated exposure control, adjustment of mA and/or kV according to patient size. COMPARISON: July 04, 2021. Reference is made to the MRI brain dated August 02, 2021. FINDINGS: BRAIN PARENCHYMA: 4 x 4.6 cm hyperdense focus is seen predominantly in the left basal ganglia with mcdonald rrounding vasogenic edema. White matter hypoattenuation, likely representing the sequela microvascula r ischemia. No abnormal extra-axial fluid. The density in the larger dural venous sinuses is grossly normal. VENTRICLES: Dilatation of ventricles with intraventricular blood products. BONES/SINUSES: The skull base and calvarium demonstrate no acute abnormality. The paranasal sinuses a nd mastoid air cells are well aerated. IMPRESSION: 1.Acute intracranial hemorrhage as detailed above. Findings were discussed with the ordering provider at the time of dictation. Reviewed by: Juan Navarrete MD on 11/30/2021 6:57 PM PST Approved by: Juan Navarrete MD on 11/30/2021 6:57 PM PST Station ID: [id number]
--- NOTE | 2021-11-30 19:02 | CT Report ---
PROCEDURE: CERVICAL SPINE WO INDICATIONS: altered mental status TECHNIQUE: Noncontrast 3 mm thick sections acquired from the skull base to the T4 level. Sagittal and coronal r eformats were then constructed. For radiation dose reduction, the following was used: automated exp osure control, adjustment of mA and/or kV according to patient size. COMPARISON: None. FINDINGS: CT CERVICAL SPINE: No acute, displaced fracture or retropulsion. Minimal grade 1 anterolisthesis at C 2-4. Small disc height loss with posterior disc osteophyte complexes at C4-5 and C6-7. Uncovertebral/ facet arthrosis. The vertebral body heights are maintained. No aggressive osseous lesions are identif ied. The central canal diameter is preserved. SOFT TISSUES: The prevertebral and paraspinal soft tissues demonstrate no abnormality. LUNG APICES/THYROID: The visualized lung apices are clear. The thyroid is homogeneous. IMPRESSION: 1.No acute osseous abnormality of the cervical spine. Reviewed by: Juan Navarrete MD on 11/30/2021 7:01 PM PST Approved by: Juan Navarrete MD on 11/30/2021 7:01 PM PST Station ID: [id number]
[2021-11-30] MEDS ORDERED: NICARDIPINE HCL 25 MG in SODIUM CHLORIDE 0.9% 240 ML IV STA (19:03)
[2021-11-30 19:04] LABS: PARTIAL THROMBOPLASTIN TIME 27.5 secs (24.9-33.3)
[2021-11-30] MEDS ORDERED: NICARDIPINE HCL 25 MG/10 ML VIAL IV ONE (19:19)
[2021-11-30 19:53] LABS: MUDS CUTOFF CONCENTRATIONS CUTOFF CONC BELOW:
[2021-11-30 20:19] LABS: BILIRUBIN,URINE NEGATIVE (NEGATIVE); GLUCOSE, URINE (UA) 250 mg/dL (NEGATIVE); KETONES,URINE (UA) NEGATIVE (NEGATIVE); LEUKOCYTE ESTERASE, URINE NEGATIVE (NEGATIVE); NITRITE,URINE NEGATIVE (NEGATIVE); OCCULT BLOOD,URINE TRACE-INTA (NEGATIVE); PH,URINE 7.5 PH (5.0-7.5); PROTEIN,URINE TRACE mg/dL (NEGATIVE); UROBILINOGEN,URINE 0.2 (NORMAL) E.U./dL (NORMAL)
[2021-11-30 20:21] LABS: CLARITY,URINE CLEAR (CLEAR)
[2021-11-30] MEDS ORDERED: SODIUM CHLORIDE FLUSH 0.9% 10 ML SYRINGE IVP PRN (20:26)
[2021-11-30] MEDS ORDERED: GLYCOPYRROLATE 1 MG/5 ML VIAL SUBQ PRN (20:28)
[2021-11-30] MEDS ORDERED: ACETAMINOPHEN 650 MG SUPP PR PRN (20:28)
[2021-11-30] MEDS ORDERED: CARBOXYMETHYLCELLULOSE OPHTH DROPS EACHEYE PRN (20:28)
[2021-11-30 20:30] LABS: AMPHETAMINE SCREEN,URINE NEGATIVE (NEGATIVE); BARBITURATE SCREEN,UR NEGATIVE (NEGATIVE); BENZODIAZEPINES SCREEN, URINE NEGATIVE (NEGATIVE); COCAINE SCREEN URINE NEGATIVE (NEGATIVE); METHADONE SCREEN, URINE NEGATIVE (NEGATIVE); METHAMPHETAMINES SCREEN, URINE NEGATIVE (NEGATIVE); OPIATE SCREEN, URINE NEGATIVE (NEGATIVE); OXYCODONE SCREEN, URINE NEGATIVE (NEGATIVE); PROPOXYPHENE SCREEN, URINE NEGATIVE (NEGATIVE); THC CANNABINOID SCREEN, URINE NEGATIVE (NEGATIVE); TRICYCLIC ANTIDEPRESSANT,URINE NEGATIVE (NEGATIVE)
[2021-11-30 20:48] LABS: B. PARAPERTUSSIS- RESP PCR PAN NOT DETECTED; B. PERTUSSIS- RESP PCR PANEL NOT DETECTED; C. PNEUMONIAE- RESP PCR PANEL NOT DETECTED; CORONAVIRUS 229E-RESP PCR NOT DETECTED; CORONAVIRUS HKU1-RESP PCR NOT DETECTED; CORONAVIRUS NL63-RESP PCR NOT DETECTED; CORONAVIRUS OC43-RESP PCR NOT DETECTED; HUMAN METAPNEUMOVIRUS NOT DETECTED; INFLUENZA A- RESP PCR PANEL NOT DETECTED; INFLUENZA B - RESP PCR PANEL NOT DETECTED; M. PNEUMONIAE- RESP PCR PANEL NOT DETECTED; PARAINFLUENZA VIRUS 1 NOT DETECTED; PARAINFLUENZA VIRUS 2 NOT DETECTED; PARAINFLUENZA VIRUS 3 NOT DETECTED; PARAINFLUENZA VIRUS 4 NOT DETECTED; RHINOVIRUS/ENTEROVIRUS NOT DETECTED; RSV- RESP PCR PANEL NOT DETECTED; SARS-CoV-2 -RESP PCR PANEL NOT DETECTED
--- NOTE | 2021-11-30 21:34 | HISTORY & PHYSICAL EXAMINATION ---
Chief Complaint - Chief Complaint Chief Complaint: found unconscious History of Present Illness - Admitted From Admitted From:: home via EMS - History Obtained From Records Reviewed: [employer] History obtained from: Dr. Morales, son and PCP records Exam Limitations: she is unconscious - History of Present Illness HPI Comment/Other: This is a 81-year-old female who has a history of malignant hypertension, type 2 diabetes mellitus, hyperlipidemia that has a known history of noncompliance with medications. Son describes her as not wanting to acknowledge illness. As such she ignores the idea that she even has these diagnoses and will not take medication. In review of the medical record she was found to have been lost to follow-up from her PCP Dr. Warren. She then reestablished in 2018 with medical center hospital. Was restarted on her medications. That include antihypertensives and diuretics. But the same type of noncompliance and resumption of medications began again in 2019. Her son Delroy, at [phone] adds to this history. He said that he came to visit his parents in the fall 2020. He was shocked to find his mom forgetful, not making any sense when she spoke of some things, and had weight loss, and had obvious memory loss. He went with her to her doctor's visits when he found out for the first time that she had high blood pressure and diabetes and that she was not taking her medications. So son Delroy resumed her medications and went back to living in [place]. At that time she had had a fall in June and an MRI of the head was done in July. 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 But he says that he does not know if that was ever done. When I spoke to him jacqueline that was the first time he heard of this. As far as he knew mom was doing better. She reassured him that she was taking her medications, and that she had gained 13 pounds from the weight loss she had had before. In the meantime she was also sent seen by dermatology at [facility] and locally by [facility] for a large neoplasm of the right worship that was biopsied and is a basal cell. It was ulcerating and being taken care of by a wound care team intermittently. Some of her problems with trying to get the doctor also have to do with her . He is also slightly forgetful but more than anything very deaf. Her finds it very frustrating to go to the doctor's office because he cannot hear and he does not understand what is going on with his . The patient was last seen in July 2021 by her primary care provider office. It is unclear what that note is about since it is an office visit but there is no document attached to it. She was brought in by EMS today. She was last seen by her in the late afternoon where she had had a sandwich. She then went to somewhere else in the house and he thought she was occupying herself with a task. After a while he went to go look for her and he found her sitting on her bed, completely unresponsive. EMS was called and she was nonverbal, no focal findings, and she was brought to the emergency room. Temperature was 36.2. Heart rate 81. Blood pressure 190/99. Respirations 20. 95% on room. She had a [place] Coma Scale of 5. She was already decorticate posturing. Slow gurgling respiration. CT of the head shows acute intracranial hemorrhage. A 4 x 4.6 cm hyperdense focus is seen predominantly in the left basal ganglia with surrounding vasogenic edema. Sequela of microvascular ischemia is again changed when compared to the July [address] of the head. C-spine is without acute osseous abnormality. Her CMP is normal other than a glucose of 206. TSH 2.66. CBC is normal. The emergency room physician spoke to [facility] neurosurgery. They state that this is not surgically amenable for treatment. If she were to be operated on, her chances of survival are slim. After speaking to the , Dr. Stover states that the family would prefer comfort measures. 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 He lives in [place]. Delroy already understood the history. He was able to help me understand how the patient got to this point. His brother does live nearby and will be trying to come visit mom jacqueline. History - Past Medical History Cardiovascular: reports: Hypertension, High cholesterol Respiratory: reports: None Neuro: reports: Dementia, Head injury (w fall and memory loss 06/2021) Endocrine/Autoimmune: reports: Type 2 diabetes GI: reports: None [employer] DEVELOPER: reports: Other () : reports: None HEENT: reports: Chronic vision loss Psych: reports: Anxiety (w decreased appetite. 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 ) MRSA Hx?: No - Past Surgical History General: reports: Appendectomy Ortho: reports: Other (arm fracture as child) - Family & Social History Family History Comment/Other: Mom of a stroke in her 80s. Dad of old age unknown cause. 4 sisters. One recently of diabetes. Her 3 other sisters are alive and well. As far as the patient's son knows, there is no history of high blood pressure or aneurysms. 4 children. 2 boys and 2 girls. Daughter had an aneurysm and is now living in assisted living facility in [facility]. Yet Living arrangement: At home Living Situation: With spouse/s.o. Social History Notes: Patient was born and raised in [facility]. She was born in a [facility]. Parents were from [place]. She moved to [place] in [place]. She is a non-smoker, rare alcohol drinker. Has no history of recreational substance abuse. - Substance History Use: Uses substance without health or social issues: NONE Abuse: Recurrent use of substance despite neg consequences: NONE Dependence: Experiences withdrawal or developed tolerances: NONE - POLST Patient has POLST: No POLST Status: DNR Meds/Allgy - Home Medications Home Medications: Ambulatory Orders Medication Instructions Recorded Confirmed Sulfamethox/Trimeth 800/160 1 each PO BID #14 tablet 07/05/21 [Bactrim Ds 800/160] - Allergies Allergies/Adverse Reactions: Allergies Allergy/AdvReac Type Severity Reaction Status Date / Time No Known Drug Allergies Allergy Verified 11/30/21 19:02 Review of Systems - Other Findings Other Findings: Other than the global review of systems provided by her son, patient is unconscious and unable to provide a review of systems Prior Level of Functionality: Getting weaker and more tired but able to complete activities of daily living. She did not use durable medical equipment. Very deaf and supposedly had hearing aids but never use them Exam - Vital Signs Reviewed Vital Signs: Yes Vital Signs: Vital Signs x48h Temp Pulse Resp BP Pulse Ox 11/30/21 20:16 104 H 20 141/130 H 95 11/30/21 20:05 102 H 22 135/116 H 97 11/30/21 19:55 100 20 128/56 L 93 11/30/21 19:50 101 H 22 147/61 H 95 11/30/21 19:40 100 20 131/95 H 98 11/30/21 19:30 92 19 162/84 H 97 11/30/21 19:00 87 19 204/92 H 97 11/30/21 18:45 36.2 C L 81 20 190/99 H 95 - Physical Exam General Appearance: positive: Other (Laying at 45 degrees, mouth open, some teeth missing, halitosis with dental caries, unresponsive to pain, already with severe decorticate posturing.Cachectic, tiny female) Eyes Bilateral: positive: Other (Left pupil 3 mm, right pupil 2 mm. Both are fixed, unresponsive.) ENT: positive: Dry mucous membranes Neck: positive: No JVD Respiratory: positive: Other (Coarse, gurgling respiration, open mouth snoring respiration) Cardiovascular: positive: Regular rate & rhythm, Systolic murmur. negative: Gallop/S4 Peripheral Pulses: positive: 1+ Abdomen: positive: No organomegaly, Nml bowel sounds, No distention Skin: positive: Warm, Dry, Other (Scaling hyperkeratotic skin that starts at the knees and gets worse by the time she gets to her toes. Poor hygiene of the lower extremities. Nails are elongated, curved.) Extremities: positive: No pedal edema Neurologic/Psychiatric: positive: Other (No eye-opening response to pain or speech. No verbal response. No motor responses with decerebrate posturing .) Conclusion/Plan - Problem List (1) Intraparenchymal hemorrhage of brain Conclusion/Plan: This unfortunate female has a long history of noncompliance with medical regimen most likely due to deafness, lack of understanding, and anxiety disorder. At 81 she has now had a intraparenchymal brain bleed with catastrophic con sequences. She is not a candidate for surgical intervention. Plan: Observation status for comfort measures (2) Decerebrate posture Conclusion/Plan: Indicating extent of brain injury. Profound decerebrate posturing. Comfort measures planned. (3) Uncontrolled hypertension Conclusion/Plan: Long history of medication noncompliance. Currently blood pressure is relatively low for her in the 140s over 90s. No plan on controlling blood pressure at this time. Our focus will be pain measures, anxiety measures, tempe rature control measures. (4) Type 2 diabetes mellitus Conclusion/Plan: Again, no short acting insulin or sliding scale treatment at this time. Focus is on comfort. Qualifiers: Diabetes mellitus superintendent terminal insulin use: without detention use Diabetes mellitus complication status: with other specified complication Qualified Code(s): E11.69 - Type 2 diabetes mellitus with other specified complication (5) Comfort measures only status Conclusion/Plan: Emergency room provider has discussed this with the . Because of the 's deafness, I called her son in [place]. Son was able to reiterate the same history given to her and his father. He concurs that mom is to be comfort measures only. He said it would be best that we call him. Dad has a hard time hearing on the phone. They wonder if family could come visit to say goodbye and we do allow that in terminal patients. As such one of her sons, and may be by tonmicheal. - Lab Results Lab results reviewed: Yes Fish Bones: 11/30/21 18:33 11/30/21 18:33 - Diagnostic Imaging Results Diagnostic Imaging Results: positive: Final report reviewed - EKG Results EKG Interpreted Independently: No Core Measures - Anticipated LOS I expect patient to be DC'd or transferred within 96 hours.: Yes - DVT/VTE - Prophylaxis VTE/DVT Device ordered at admit?: Yes
[2021-12-01] MEDS: MORPHINE 2 MG/ML CARPUJECT IVP PRN ×2 (00:40→03:13)
[2021-12-01 00:45] VITALS: BP 179/83
[2021-12-01] MEDS ORDERED: SODIUM CHLORIDE FLUSH 0.9% 10 ML SYRINGE IVP SCH (01:00)
--- NOTE | 2021-12-01 04:24 | DISCHARGE SUMMARY ---
"Discharge Summary Admit Date: 11/30/21 Discharge Date: 12/01/21 Discharging Provider: Sue Crockett MD Primary Care Provider: DHAVAL Giang Code Status: Do Not Attempt Resuscitation Condition at Discharge: Serious Discharge Disposition: 20 - DIAGNOSES Discharge Diagnoses with Status of Each Condition: 1. Intraparenchymal hemorrhage of the brain 2. Decerebrate posturing 3. Uncontrolled hypertension 4. Type 2 diabetes mellitus, without long-term use of insulin, without complications 5. Comfort measures only status - HPI History of Present Illness: Please refer to detailed history and physical which was dictated approximately 9 PM last night. She is found down by her and has been unresponsive since then. CT confirms large intra-parenchymal brain bleed and she is not a candidate for surgery. Patient has been transitioned to comfort measures per family request - CONSULTS | PROCEDURES Procedures: CT of head has acute 4 x 4.6 cm intracranial hemorrhage in the left basal ganglia with surrounding vasogenic edema. C-spine CT was without acute osseous abnormality. - HOSPITAL COURSE Hospital Course: The patient was placed in observation status. She had fixed pupils that were unresponsive. Left pupil was more dilated than right. She had profound decerebrate posturing. and son held shea at the bedside and this unfortunate female at 4:20 AM. She had a burst of tachycardia followed by bradycardia and then asystole. 1 minute of examination was done and there is no spontaneous respiration, pulse, with pupils remaining fixed and dilated. - ALLERGIES Allergies/Adverse Reactions: Allergies Allergy/AdvReac Type Severity Reaction Status Date / Time No Known Drug Allergies Allergy Verified 11/30/21 19:02 - MEDICATIONS Home Medications: Ambulatory Orders Medication Instructions Recorded Confirmed Sulfamethox/Trimeth 800/160 1 each PO BID #14 tablet 07/05/21 [Bactrim Ds 800/160] - LABS Result Diagrams: 11/30/21 18:33 11/30/21 18:33"
== END 2021-12-01 04:20 | disposition expired ==
LOC: EDUNIT# → ED 18:23 → ICU 20:26
PROVIDERS: ADMIT Specialist; ATTEND Specialist
DX: I62.9 Nontraumatic intracranial hemorrhage, unspecified (principal); I10 Essential (primary) hypertension; E11.9 Type 2 diabetes mellitus without complications; E78.00 Pure hypercholesterolemia, unspecified; H54.7 Unspecified visual loss; H91.90 Unspecified hearing loss, unspecified ear; G93.6 Cerebral edema; F03.90 Unspecified dementia, unspecified severity, without behavioral disturbance, psychotic disturbance, mood disturbance, and anxiety; F41.9 Anxiety disorder, unspecified; C44.319 Basal cell carcinoma of skin of other parts of face; Z20.822 Contact with and (suspected) exposure to COVID-19; Z51.5 Encounter for palliative care; Z66 Do not resuscitate; Z91.14 Patient's other noncompliance with medication regimen
CPT/HCPCS: 36415; 51702; 70450; 72125; 80053; 80306; 80307; 81003; 83690; 84443; 85025; 85610; 85730; 87150; 87631; 93005; 96365; 96372; 96375; 96376; 99285; G0378; G0480; 0202U; 80320; 80329; 81001; 87086